=== PATIENT | female | born 1990 | race Caucasian/White ===

== ENCOUNTER 2023-10-16 20:01 | Emergency (ER) | payer SELFPAY ==
[~2023-10-16] VITALS: Ht 154.9 cm; Wt 107.0 kg
[2023-10-16 20:08] VITALS: PULSE 97; RESP 20; TEMP 98.3
[2023-10-16] MEDS ORDERED: PREDNISONE20 MG PO (22:06)
[2023-10-16] MEDS ORDERED: ALBUTEROL2.5 MG/3 M INH (22:07)
[2023-10-16] MEDS ORDERED: VENTOLIN HFA18 GM INH (22:09)
[2023-10-16] MEDS ORDERED: AMOX TR-K CLV1 EAC2 PO (22:10)
[2023-10-16] MEDS: PREDNISONE 20 MG TAB PO ONE (22:19)
[2023-10-16] MEDS: AMOXICILLIN/CLAVULANATE K 875 MG TAB PO STA (22:19)
[2023-10-16 22:45] VITALS: BP 122/77; PULSE 96; RESP 18; TEMP 98.2; O2SAT 96
== END 2023-10-16 22:45 | disposition home or self-care (01) ==
LOC: FSED 20:09
DX: R05.9 Cough, unspecified (principal); U07.1 COVID-19; J20.9 Acute bronchitis, unspecified; J45.901 Unspecified asthma with (acute) exacerbation; F41.9 Anxiety disorder, unspecified; F32.A Depression, unspecified; F17.290 Nicotine dependence, other tobacco product, uncomplicated
CPT/HCPCS: 0223U; 71046; 81003; 81025; 83518; 87400; 99283; J7512